=== PATIENT | male | born 1990 | race Caucasian/White ===

== ENCOUNTER 2020-02-02 05:50 | Day surgery (SDC) | payer BC, SELFPAY ==
[2020-01-02 14:52] VITALS: BMI 22.3
[2020-02-02 06:25] VITALS: BP 130/83; PULSE 68; RESP 16; TEMP 36.8; O2SAT 99; BMI 21.7
[2020-02-02] MEDS: Lactated Ringers 1,000 ML 100 ML IV (06:29)
[2020-02-02] MEDS: Cefazolin 2 GM in 0.9% Normal Saline 100 ML IV (07:22)
[2020-02-02] MEDS: Bupivacaine Mpf 0.5% 30 ML VIAL (08:30)
[2020-02-02 09:03] VITALS: BP 102/63; BP 130/83; PULSE 73; RESP 16; TEMP 36.4; O2SAT 97
--- NOTE | 2020-02-02 09:05 | OP.PCM_ITS ---
Problem List (1) Bilateral inguinal hernia Status: Acute Qualifiers: Obstruction and gangrene presence: without obstruction or gangrene Recurrence: non-recurrent Qualified Code(s): K40.20 - Bilateral inguinal hernia, without obstruction or gangrene, not specified as recurrent Report of Operation Date of Procedure: 02/02/20 Pre-Operative Diagnosis: Right inguinal hernia Post-Operative Diagnosis: Bilateral inguinal hernia Surgery/Procedure Performed:: Robotic assisted laparoscopic bilateral inguinal hernia repair with mesh Description of Procedure: Patient was brought back to the operating room and general anesthesia was induced. The abdomen was prepped draped in usual sterile fashion. An incision was made superior to the umbilicus deep to the fascia was elevated and incised. A port was placed into the abdomen and it was insufflated 15 mmHg. The camera was placed into the abdomen and was inspected. The patient was found to have bilateral inguinal hernias. As discussed before surgery the patient wanted both repaired if they were present. Under direct visualization a right lower quad rant and left lower quadrant 8 mm port were placed. The patient was then placed in steep Trendelenburg position and the robot was docked. The right lower quadrant was addressed first and the peritoneum was scored using electrocautery scissors. The peritoneum was dissected inferiorly until the hernia sac was encountered and dissected free. Once the dissection was complete a progrip mesh was trimmed and placed into the right groin region and unfolded to cover the hernia defect. The peritoneum was then reapproximated using a running 3-0 V-Loc suture incorporating the hernia sac. The peritoneum completely covered the mesh at the end of the procedure. The left groin was then addressed. In a similar fashion the peritoneum was scored electrocautery scissors and dissected inferiorly until the hernia sac was reduced. Progrip mesh was placed in the left groin and unfolded completely covering the hernia defect and the peritoneum was reapproximated using a running 3-0V lock suture. The instruments are then removed from the robot and it was undocked. The ports were removed and the midline incision fascia was closed with an interrupted 0 Vicryl suture. All of the skin incisions were anesthetized and closed with interrupted 4-0 Monocryl sutures as well as Steri-Strips and bandages. The scrotum was checked at the end of the case and contain both testicles. Patient was awoken and taken to PACU in stable condition and tolerated the procedure well. Grafts/Implants Used: Progrip mesh - Admit VTE Documentation VTE Present on Admission: No VTE Mechan Device Prophylaxis: SCD's
--- NOTE | 2020-02-02 09:13 | PCM.DC.HER ---
Discharge Diet: Light diet - advance as tolerated Discharge Activity: Return to Normal Activity, May Not Drive - for 2-3 days or while taking narcotic pain meds., May Shower - with the bandage in place 1-2 days after surgery. Lifting Restrictions: 20 pounds for 4 weeks. Additional Activity Instructions:: Climbing stairs is fine, walking is encouraged. Sitting in bed may be uncomfortable. Sitting up using your lateral muscles (sitting up sideways) is usually more comfortable. Do not drive, work heavy equipment of sign legal documents for 24 hours. If your hernia repair was an ingunial repair, you may have scrotal swelling, an ice pack and/or athletic support can provide more comfort. Pain medications may cause nausea, you should typically eat light foods as you take your pain medications. Pain medications may also cause constipation. If you have difficulty with this, discuss with your doctor. Call your doctor if your incision/area has: Continuous Slow Oozing, Sudden Increased Bleeding, Increased Pain/ Swelling, Increased Redness, Foul Smelling Discharge Call your doctor if you observe: Fever of 101 or Higher Suture Line Care: Avoid Pulling/Pushing, Avoid Pinching/Bending Change Dressing in (Days):: 3 - Leave steri-strips for 1 week. May protect with a guaze bandaid. Cleanse incision/area with: Keep Dressing Clean & Dry Allergies/Adverse Reactions: Allergies No Known Allergies Allergy (Verified 02/02/20 06:11) Medications to take at Discharge Oxycodone HCl/Acetaminophen [Percocet 5-325 mg Tablet] 1 - 2 tab PO Q6H PRN PRN 5 Days #20 tablet 02/02/20 The following prescriptions were given: Oxycodone HCl/Acetaminophen [Percocet 5-325 mg Tablet] 1 - 2 tab PO Q6H PRN PRN 5 Days #20 tablet PRN Reason: Pain Score 4-10/10 Transmission Status: Sent to [facility] Primary Care Physician: Carl Vieyra MD [Primary Care Provider] - Test Results: Test results from this visit will be discussed in further detail at your follow-up appointment, if applicable. Please Follow Up With: Rufino Choi MD When: Please call to schedule 2 week follow up appointment. [phone]
[2020-02-02 09:15] VITALS: BP 101/70; BP 130/83; PULSE 63; RESP 16; O2SAT 99
[2020-02-02 09:30] VITALS: BP 100/76; BP 130/83; PULSE 67; RESP 16; O2SAT 100
[2020-02-02 09:40] VITALS: BP 114/78; BP 130/83; PULSE 74; RESP 16; TEMP 36.8; O2SAT 100
[2020-02-02 10:40] VITALS: BP 125/82; BP 130/83; PULSE 71; RESP 16; TEMP 36.9; O2SAT 100
--- NOTE | 2020-02-02 11:00 | HP_ITS ---
Intake Vital Signs 01/02/20 Height 5 ft 10 in 01/02/20 Weight: 155 lb 7 oz 01/02/20 BMI 22.3 01/02/20 BP 136/78 H 01/02/20 Blood Pressure Location Rt brachial 01/02/20 Position Sitting 01/02/20 Respiration 16 01/02/20 Pulse 93 01/02/20 Pulse Source NIBP 01/02/20 Temp 98.1 F 01/02/20 Temp Source Temporal 01/02/20 Pulse Oximetry (%) 99 01/02/20 Oxygen Delivery Method room air Intake Visit Reasons: Hernia Chief Complaint: [facility] Lozenge Maker Required: No Is patient in pain?: No Allergies No Known Allergies Allergy (Verified 01/02/20 14:53) Medications NK 01/02/20 [History Confirmed 01/02/20] [facility] Medical History No pertinent past medical history (Acute) Surgical History No pertinent past surgical history (Acute) Family History Father Hypertension Grandfather Hypertension Grandmother Heart disease Cancer skin Social History (Updated 01/02/20 @ 14:[address] Rufino Choi MD) Smoking Status: Never smoker HPI HPI HPI: GUERA MAYES, is a 29 M who presents to the office today for HPI HPI Surgical H&P: Yes HPI: GUERA MAYES, is a 29 M who presents to the office today for Right groin bulging. The patient reports that he has been having bulging for months but it has been getting worse. He does not notice a distinct start to this. He is not having any nausea or vomiting. He denies any pain in the opposite side. No fevers or chills. He reports that the lump does go away with laying down. ROS General General: No weight change, appetite, fatigue, colon cancer, breast cancer or weakness HEENT HEENT: No difficulty swallowing, eye injury, eye surgery, swollen glands or hoarseness Endo Endocrine: No thyroid disease, diabetes mellitus, thyroid cancer, Hair loss, heat intolerance or cold intolerance Musc Musculoskeletal: No back problems, arthritis, rheumatoid arthritis, gout or joint pain Cardio Cardiovascular: No murmur, pacemaker, heart disease, atrial fibrillation, high blood pressure, heart attack, heart stent, palpitations, shortness of breat with exertion or chest pain Psych Psychiatric: No depression, anxiety or hearing voices Resp Respiratory: No shortness of breath, No sleep apnea, No cough, No COPD, No asthma, No emphysema, No wheezing Gastro Gastrointestinal: No abdominal pain, No nausea or vomiting, No diarrhea, No constipation, No blood in stool, No acid reflux, No hemorrhoids, No ulcers, No gallbladder problem, No black,tarry stools Navid Hematologic: No blood thinners, No blood disorders, No bleeding, No anemia, No blood clots Neuro Neurologic: No weakness Exam Const General: cooperative Orientation: alert, oriented x3 HENMT Head: normal to inspection Ears: hearing grossly normal bilaterally Eyes General: appearance normal, both eyes and all related structures Visual Bustamante: normal visual bustamante by confrontation Neck Neck: normal visual inspection Chest Chest palpation & inspection: normal inspection of the chest Resp Effort & Inspection: normal respiratory effort Auscultation: clear to auscultation bilaterally Cardio Rate: regular rate Rhythm: regular rhythm Heart Sounds: no murmurs GI Inspection: non-distended Palpation: soft, hernia direct inguinal on the right, nontender Musc Cervical Spine: normal cervical lordosis, cervical ROM normal Skin General: no rashes or lesions noted Neuro General: alert, oriented x3 Cranial Nerves: CN's II-XI intact bilaterally Cognition: normal cognition Extrem General: normal to inspection, full ROM Psych Appearance: grossly normal Affect: normal affect Assessment & Plan 1. Right inguinal hernia K40.90 Plan The patient has a reducible right inguinal hernia. The patient is very young and is active and he would like this repaired. I discussed open versus laparoscopic repair and the patient opted for robotic assisted laparoscopic right inguinal hernia repair with mesh. I discussed the procedure in detail as well as the risks including not limited to bleeding, infection, injury to other organs, spermatic cord injury, chronic groin pain, hernia recurrence. The patient understands all the risks and is well to proceed. I did discuss the possibility of a contralateral hernia being found during surgery and he says that if this is found he would like it repaired. We discussed the current risks associated with COVID-19. While it is understood that there is a community spread of COVID-19, the risk of koko COVID-[address] [facility]) is very low; however, the risk cannot be completely mitigated because of the community spread of the disease. We discussed in detail the risk of exposure to and/or potential harm posed by the COVID-19 virus with having a surgery/procedure at this time versus the risk of delaying the surgery/procedure. It is not possible to know either the risk of delaying the surgery or procedure or chance of getting an infection with perfect accuracy, but a joint decision was made to proceed at this time with the scheduled surgery/procedure as indicated on the consent form. Patient was notified that we will need to comply with any screening or testing [facility] wishes to perform or that surgery may be delayed for any positive results. Rufino Choi MD Pager: [facility] [address] [place] [address], [address] [place] [address] Office: Coding Level of Care Code Off vis,new,level 4 Diagnoses Right inguinal hernia K40.90 I have seen and examined the patient, no changes since prior exam.
== END 2020-02-02 10:50 | disposition home or self-care (01) ==
LOC: SDC 05:52 → AC 05:53
PROVIDERS: PCP Family Medicine; Referring Provider Family Medicine; Visit Provider Surgery
PROC: (CPT 49650; principal; 2020-02-02 07:10)
DX: K40.20 Bilateral inguinal hernia, without obstruction or gangrene, not specified as recurrent (principal); Z20.828 Contact with and (suspected) exposure to other viral communicable diseases
CPT/HCPCS: 49650; 87426; C9803; J7120; J2405

== ENCOUNTER → 2020-06-10 | Outpatient (CLI) | payer BC, SELFPAY | END | disposition home or self-care (01) | PROVIDERS: PCP Family Medicine; Visit Provider Family Medicine | DX: Z20.822 Contact with and (suspected) exposure to COVID-19 (principal) | CPT/HCPCS: 87635; U0002 ==

== ENCOUNTER → 2023-08-24 | Outpatient (CLI) | payer BC, SELFPAY ==
--- NOTE | 2023-08-24 12:41 | RAD_ITS ---
STUDY: X-RAY - RIGHT HAND REASON FOR EXAM: Male, 33 years old. Right hand contusion TECHNIQUE: 3 view(s) of the hand. COMPARISON: None. FINDINGS: Normal radiocarpal articulation. Normal distal radioulnar joint. Normal visualized carpal bones. Normal carpal articulations Normal carpometacarpal articulation of the thumb. Normal second through fifth carpometacarpal joints. Normal metacarpi. Normal metacarpophalangeal joint of the thumb. Normal interphalangeal joint of the thumb. Normal proximal and distal phalanges of the thumb. Normal metacarpophalangeal joints of the second through fifth fingers. Normal proximal and distal interphalangeal joints of the second through fifth fingers. Nondisplaced transverse fracture at the base of the proximal phalanx of the fifth digit. Soft tissue swelling. RAD/Hand Min 3 Views IMPRESSION: Nondisplaced transverse fracture at the base of the proximal phalanx of the fifth digit with overlying soft tissue swelling. Electronically Signed: Bhanu Santos MD at 13:23 EDT ,
== END | disposition home or self-care (01) ==
PROVIDERS: PCP Family Medicine; Referring Provider Physician Assistant Surgical; Visit Provider Physician Assistant Surgical
DX: S60.221A Contusion of right hand, initial encounter (principal); X58.XXXA Exposure to other specified factors, initial encounter
CPT/HCPCS: 73130

== ENCOUNTER → 2023-09-29 | Outpatient (CLI) | payer BC, SELFPAY ==
[2023-09-29 08:14] LABS: Anion Gap 3 (5-15); BUN 13 mg/dL (7-18); BUN/Creat Ratio 11.8 RATIO (10-20); Calcium,Total 8.7 mg/dL (8.5-10.1); Chloride 105 mmol/L (98-107); Cholesterol 151 mg/dL (200); EST Glomerular Filtration Rate 82 mL/min (>60); Est Glom Filt Rate - Afr Amer 99 mL/min (>60); Glucose 103 mg/dL (74-106); High Density Lipoprotein 42 mg/dL; Potassium 3.8 mmol/L (3.5-5.1); Sodium Level 137 mmol/L (136-145); Triglycerides 164 mg/dL; Very Low Density Lipoprotein 33 mg/dL (5-40)
== END | disposition home or self-care (01) ==
LOC: LAB 07:19
PROVIDERS: PCP Family Medicine; Referring Provider Family Medicine; Visit Provider Family Medicine
DX: Z13.220 Encounter for screening for lipoid disorders (principal); Z13.1 Encounter for screening for diabetes mellitus
CPT/HCPCS: 36415; 80048; 80061